=== PATIENT | female | born 1995 | race Caucasian/White ===

== ENCOUNTER 2020-09-19 10:36 | Outpatient (CLI) | payer OTHER ==
[2020-09-20 01:47] LABS: SARS-CoV-2 PCR by NAA Not Detected (NotDetected)
== END 2020-09-19 10:37 | disposition home or self-care (01) ==
LOC: CSHLAB 10:36
PROVIDERS: ATTEND Obstetrics & Gynecology
DX: Z20.822 Contact with and (suspected) exposure to COVID-19 (principal)
CPT/HCPCS: 87635; U0003; U0005

== ENCOUNTER 2020-09-23 05:30 | Inpatient (IN) | payer OTHER ==
[2020-09-23 06:31] VITALS: BMI 36.6
[2020-09-23] MEDS: Lactated Ringer's 1,000 ML IV SCH ×2 (06:50→15:00)
[2020-09-23] MEDS ORDERED: Ondansetron PF 4 MG/2 ML Vial IVP PRN ×3 (06:59→20:49)
[2020-09-23] MEDS ORDERED: hydrALAZINE 20 MG/ML VIAL SLOW IVP PRN ×2 (06:59→20:49)
[2020-09-23] MEDS ORDERED: Methylergonovine 0.2 MG/ML VIAL IM PRN (06:59)
[2020-09-23] MEDS ORDERED: NS / Oxytocin 40 units/1000ml 1,000 ML IV PRN (06:59)
[2020-09-23] MEDS ORDERED: Lidocaine 1% (PF) 30 ML VIAL SC PRN (06:59)
[2020-09-23] MEDS ORDERED: Docusate 100 MG CAP PO PRN (06:59)
[2020-09-23] MEDS ORDERED: Misoprostol 200 MCG TAB PR PRN (06:59)
[2020-09-23] MEDS ORDERED: HYDROcodone/Acetaminophen 5/325 mg Tablet PO PRN ×2 (06:59)
[2020-09-23] MEDS ORDERED: Carboprost 250 MCG/ML AMP IM PRN (06:59)
[2020-09-23] MEDS ORDERED: Ibuprofen 800 MG TAB PO PRN (06:59)
[2020-09-23] MEDS ORDERED: Diphenoxylate HCl/Atropine Tablet PO PRN ×2 (06:59)
[2020-09-23] MEDS ORDERED: Promethazine HCl 25 MG/ML VIAL IM PRN ×2 (06:59→17:00)
[2020-09-23] MEDS ORDERED: Acetaminophen 500 MG TAB PO PRN (06:59)
[2020-09-23] MEDS ORDERED: NS w/ Oxytocin 30 units 500 ML ONE ×2 (07:13→20:02)
[2020-09-23 07:22] LABS: Hemoglobin 11.3 g/dL (12.0-15.5); Mean Corpuscular HGB CONC 33.5 g/dL (32.0-36.0); Mean Corpuscular Hemoglobin 30.1 pg (27.0-33.0); Mean Corpuscular Volume 89.9 fl (81.6-98.3); Mean Platelet Volume 10.3 fl (7.4-10.4); Platelet Count 213 10x3/uL (150-450); RBC Distribution Width 13.5 % (11.5-14.5); Red Blood Cell (RBC) Count 3.75 10x6/uL (3.90-5.03); White Blood Cell (WBC) Count 14.4 10x3/uL (3.5-10.5)
[2020-09-23] MEDS: Butorphanol Tartrate 1 MG/ML VIAL SLOW IVP PRN ×3 (07:49→12:42)
[2020-09-23] MEDS ORDERED: Bupivacaine 0.25% HCL 30 ML VIAL ONE (08:00)
[2020-09-23 08:27] LABS: Hep B Surf Ag Non-Reactive S/CO (NonReactive)
[2020-09-23 08:28] LABS: Syphilis Antibody Nonreactive (Nonreactive); Syphilis Antibody Index 0.02 S/CO (<1.00 Non-Reactive)
[2020-09-23 08:47] LABS: HBSAg Index 0.16 S/CO (0-0.99)
[2020-09-23] MEDS ORDERED: Fentanyl 4 mcg/Bup 0.1% Cadd 100 ML ONE (14:31)
[2020-09-23] MEDS ORDERED: diphenhydrAMINE 50 MG/ML VIAL IVP PRN (17:00)
[2020-09-23] MEDS ORDERED: Communication Order-Pharmacy FS SCH (17:00)
[2020-09-23] MEDS ORDERED: Acetaminophen 325 MG TAB PO PRN (17:00)
[2020-09-23] MEDS ORDERED: Naloxone HCl 0.4 mg/ml Vial IVP PRN ×2 (17:00)
[2020-09-23] MEDS ORDERED: Lactated Ringer's 500 ML IV PRN (17:00)
[2020-09-23] MEDS ORDERED: Fentanyl 4 mcg/Bupivacaine 0.1% Cassette 100 ML EPIDURAL SCH (17:00)
[2020-09-23] MEDS ORDERED: Hydrocerin (Eucerin) Cream 120 gm Jar TOP PRN (17:31)
[2020-09-23] MEDS ORDERED: ePHEDrine Sulfate 50 MG/10 ML VIAL SLOW IVP PRN (17:32)
[2020-09-23] MEDS ORDERED: Lanolin Ointment 7 GM TUBE TOP PRN (20:49)
[2020-09-23] MEDS ORDERED: Bisacodyl 10 MG SUPP PR PRN (20:49)
[2020-09-23] MEDS ORDERED: Milk Of Magnesia 30 ML UDCUP PO PRN (20:49)
[2020-09-23] MEDS ORDERED: diphenhydrAMINE 25 MG CAP PO PRN (20:49)
[2020-09-23] MEDS ORDERED: Preparation H Ointment 28 GM TUBE PR PRN (20:49)
[2020-09-23] MEDS ORDERED: Misoprostol 200 MCG TAB VAG PRN (20:49)
[2020-09-23] MEDS ORDERED: Zolpidem Tartrate 5 MG TAB PO PRN (20:49)
[2020-09-23] MEDS ORDERED: NS w/ Oxytocin 30 units 500 ML IV SCH (21:00)
[2020-09-23] MEDS: Ibuprofen 800 MG TAB PO SCH (22:08)
[2020-09-23] MEDS: Docusate Calcium (SURFAK) 240 MG CAP PO SCH (22:08)
[2020-09-23] MEDS: HYDROcodone/Acetaminophen 5/325 mg Tablet PO PRN (22:43)
[2020-09-24] MEDS: Ibuprofen 800 MG TAB PO SCH ×3 (05:02→22:26)
[2020-09-24 05:46] LABS: Hemoglobin 10.5 g/dL (12.0-15.5); Mean Corpuscular HGB CONC 33.2 g/dL (32.0-36.0); Mean Corpuscular Hemoglobin 29.9 pg (27.0-33.0); Mean Platelet Volume 10.1 fl (7.4-10.4); Platelet Count 195 10x3/uL (150-450); RBC Distribution Width 13.7 % (11.5-14.5); Red Blood Cell (RBC) Count 3.51 10x6/uL (3.90-5.03); White Blood Cell (WBC) Count 14.7 10x3/uL (3.5-10.5)
[2020-09-24] MEDS: HYDROcodone/Acetaminophen 5/325 mg Tablet PO PRN ×4 (06:15→22:27)
[2020-09-24] MEDS: Ferrous Sulfate 325 MG TAB PO SCH ×2 (08:20→15:03)
[2020-09-24] MEDS ORDERED: Varicella virus, LIVE 0.5 ML VIAL SC ONE (09:00)
[2020-09-24] MEDS ORDERED: Adacel (T-DAP) 0.5 ML SYRINGE IM ONE (09:00)
[2020-09-24] MEDS ORDERED: Measles/Mumps/Rubella 10 MCG/0.5 ML VIAL SC ONE (09:00)
[2020-09-24] MEDS: Prenatal Vitamin 1 TAB PO SCH (09:13)
[2020-09-24] MEDS: Docusate Calcium (SURFAK) 240 MG CAP PO SCH ×2 (09:13→22:26)
[2020-09-25] MEDS: HYDROcodone/Acetaminophen 5/325 mg Tablet PO PRN (00:46)
[2020-09-25] MEDS: Ibuprofen 800 MG TAB PO SCH ×2 (06:44→09:40)
[2020-09-25] MEDS: Ferrous Sulfate 325 MG TAB PO SCH (07:28)
[2020-09-25 07:39] VITALS: BP 135/72; TEMP 98.3
[2020-09-25] MEDS: Prenatal Vitamin 1 TAB PO SCH (09:39)
[2020-09-25] MEDS: Docusate Calcium (SURFAK) 240 MG CAP PO SCH (09:40)
== END 2020-09-25 12:41 | disposition home or self-care (01) | DRG 807 ==
LOC: CSHLD 05:41 → CSHPP 21:11
PROVIDERS: ADMIT Obstetrics & Gynecology; ATTEND Obstetrics & Gynecology
PROC: 10E0XZZ Delivery of Products of Conception, External Approach (ICD-10-PCS; principal; 2020-09-23)
PROC: 3E0P7VZ Introduction of Hormone into Female Reproductive, Via Natural or Artificial Opening (ICD-10-PCS; 2020-09-23)
DX: O40.3XX0 Polyhydramnios, third trimester, not applicable or unspecified (principal); Z37.0 Single live birth; Z3A.39 39 weeks gestation of pregnancy; Z20.822 Contact with and (suspected) exposure to COVID-19; Z88.8 Allergy status to other drugs, medicaments and biological substances
CPT/HCPCS: 36415; 51702; 85027; 86780; 86850; 86900; 86901; 87340; J0595; J2590; J7030; S0020